=== PATIENT | male | born 1985 | race Caucasian/White ===

== ENCOUNTER 2018-09-20 19:56 | Emergency (ER) | payer BC ==
--- NOTE | 2018-09-20 20:39 | EDM.PDOC ---
ED HPI GENERAL MEDICAL PROBLEM - General Chief Complaint: ENT Problem Stated Complaint: BROKE A TOOTH EXPOSING A NERVE Time Seen by Provider: 09/20/18 20:12 Source of Information: Reports: Patient History Limitations: Reports: No Limitations - History of Present Illness INITIAL COMMENTS - FREE TEXT/NARRATIVE: 32-year-old male presents for evaluation and treatment of injury to right upper tooth. Patient reports he broke the tooth last night. Did not experience immediate pain but today suddenly started experiencing severe pain. Denies any fevers, chills, nausea, vomiting or any bad taste in his mouth. Patient resides in [place]. He is here working until Monday. States he contacted several dentist today and will not be able to be seen until Monday. Last dental visit was about 6 months ago. 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 Right Upper Oral/Mouth Pain Score (Numeric/FACES): 8 - Related Data Allergies Allergy/AdvReac Type Severity Reaction Status Date / Time Penicillins Allergy Cannot Verified 09/20/18 20:04 Remember Home Meds: Home Meds Acetaminophen/oxyCODONE [Percocet 325-5 MG] 1 each PO Q6HR PRN #20 tab 09/20/18 [Rx] Past Medical History Neurological History: Reports: Concussion Dermatologic History: Reports: Psoriasis - Infectious Disease History Infectious Disease History: Reports: C-Difficile, Influenza - Past Surgical History HEENT Surgical History: Reports: Adenoidectomy, Myringotomy w Tube(s), Tonsillectomy Social & Family History - Family History Family Medical History: Noncontributory - Tobacco Use Smoking Status *Q: Never Smoker - Caffeine Use Caffeine Use: Reports: Soda - Recreational Drug Use Recreational Drug Use: No ED ROS ENT - Review of Systems Review Of Systems: See Below Constitutional: Denies: Fever, Chills HEENT: Reports: Dental Pain (right upper molar) GI/Abdominal: Denies: Nausea, Vomiting ED EXAM, ENT - Physical Exam Exam: See Below Exam Limited By: No Limitations General Appearance: Alert, WD/WN, No Apparent Distress, Obese Ears: Normal External Exam, Normal Canal, Hearing Grossly Normal, Normal TMs Nose: Normal Inspection Mouth/Throat: Normal Inspection, Normal Gums, Normal Lips, Normal Oropharynx, Dental Pain (#3), Dental Tenderness (#3), Dental Trauma (#3 is broken). No: Dental Abcess Respiratory/Chest: No Respiratory Distress Neurological: Alert, Oriented, Normal Cognition Psychiatric: Normal Affect, Normal Mood Skin: Warm, Dry, Normal Color Course - Vital Signs Last Recorded V/S: Last Vital Signs Temp 98.5 F 09/20/18 20:05 Pulse 83 09/20/18 20:05 Resp 16 09/20/18 20:05 BP 141/76 H 09/20/18 20:05 Pulse Ox 97 09/20/18 20:05 - Re-Assessments/Exams Free Text/Narrative Re-Assessment/Exam: 09/20/18 20:30 Topical benzocaine 20% applied to the tooth, no relief. Patient tried a topical OTC product prior to arrival in the ER which provided on momentarily relief. Will discharge home at this time. Discharge instructions as documented. Departure - Departure Time of Disposition: 20:33 Disposition: Home, Self-Care 01 Condition: Fair Clinical Impression: Pain, dental - Discharge Information *PRESCRIPTION DRUG MONITORING PROGRAM REVIEWED*: No *COPY OF PRESCRIPTION DRUG MONITORING REPORT IN PATIENT CINDY: No Prescriptions: Acetaminophen/oxyCODONE [Percocet 325-5 MG] 1 each PO Q6HR PRN #20 tab PRN Reason: Pain Referrals: PCP,Not In Area [Primary Care Provider] - Forms: ED Department Discharge Additional Instructions: Take ibuprofen, may take up to 3200mg of ibuprofen in one day. For pain not relieved by ibuprofen may take percocet 1 tab PO every 4-6 hours prn pain. Percocet is habit forming, take as few these as needed to control your pain. Do not drive or operate machinery within 10 hours of taking Percocet. recommend using topical clove oil or Orajel for additional pain relief. You may also purchase dental wax available [id number] to try and keep the area covered. Follow-up with the dentist as soon as you're are able to. Please return to ER for symptoms change or worsen.
== END 2018-09-20 20:45 | disposition home or self-care (01) ==
LOC: JD.ED 19:56
DX: S02.5XXA Fracture of tooth (traumatic), initial encounter for closed fracture (principal); Z88.0 Allergy status to penicillin; X58.XXXA Exposure to other specified factors, initial encounter
CPT/HCPCS: 99282